=== PATIENT | male | born 1945 | race Caucasian/White ===

== ENCOUNTER → 2020-08-07 16:51 | Outpatient (CLI) | payer BC ==
[2010-10-31 06:24] VITALS: BMI 25.4
[2020-08-07 17:32] LABS: ALBUMIN 3.6 g/dL (3.4-5.0); ALKALINE PHOSPHATASE 24 U/L (30-120); ALT (SGPT) 25 U/L (10-68); BILIRUBIN - TOTAL 0.96 mg/dL (0.2-1.3); CALC OSMOLALITY 277 mosm/kg (275-300); CALCIUM 8.9 mg/dL (8.5-10.1); CARBON DIOXIDE 26.7 mmol/L (21.0-32.0); CHLORIDE - SERUM 106 mmol/L (98-107); CREATININE - SERUM 0.9 mg/dL (0.6-1.3); GLUCOSE 85 mg/dL (74-106); POTASSIUM - SERUM 3.7 mmol/L (3.5-5.1); PROTEIN - SERUM 6.2 g/dL (6.4-8.2); SODIUM 140 mmol/L (136-145); THYROID STIMULATING HORMONE 0.54 uIU/mL (0.36-3.74); UREA NITROGEN 12 mg/dL (7-18); eGFR NON AFRICAN AMERICAN 88 mL/min (90-120)
== END | disposition home or self-care (01) ==
LOC: D.LABREF 16:51
PROVIDERS: ATTEND Internal Medicine Gastroenterology
DX: R10.11 Right upper quadrant pain (principal); R11.2 Nausea with vomiting, unspecified; R63.4 Abnormal weight loss; K80.20 Calculus of gallbladder without cholecystitis without obstruction; C64.9 Malignant neoplasm of unspecified kidney, except renal pelvis

== ENCOUNTER → 2020-08-15 16:55 | Outpatient (CLI) | payer MEDICARE ==
[2010-10-31 06:24] VITALS: BMI 25.4
== END | disposition home or self-care (01) ==
LOC: D.LABREF 16:55
PROVIDERS: ATTEND Internal Medicine Gastroenterology
DX: R10.11 Right upper quadrant pain (principal); R63.4 Abnormal weight loss; C64.9 Malignant neoplasm of unspecified kidney, except renal pelvis